=== PATIENT | female | born 1950 | race Two or more races ===

== ENCOUNTER 2022-01-16 10:33 | Emergency (ER) | payer OTHER ==
[~2022-01-16] VITALS: Ht 172.7 cm; Wt 68.5 kg
[2022-01-16 10:45] VITALS: BP_SYST 141
--- NOTE | 2022-01-16 10:55 | NUR ---
PT BROUGHT TO ROOM, PRESENTED TO ED FROM HOME. PT AMBULATORY, STATES ONSET OF SINUS INFECTION LIKE S/S 2 WEEKS AGO, HAVE NOT GOTTEN BETTER, HAS INTERMITTENT MAHAJAN AND FACIAL PRESSURE WITH DRAINAGE, STATES HAS BEEN TAKING OTC MEDS THAT ARE NOT HELPING. DENIES CURRENT SOB, DENIES CP OR FOCAL NEURO CHANGES
--- NOTE | 2022-01-16 11:00 | NUR ---
ER at bedside examining patient.
--- NOTE | 2022-01-16 11:20 | NUR ---
LAB AT BEDSIDE TO DRAW BLOOD
[2022-01-16 11:33] LABS: BASOPHILS % (AUTO) 0.5 % (0.0-2.0); EOSINOPHILS # (AUTO) 0.2 K/uL (0.0-0.4); HEMATOCRIT 38.5 % (36-48); LYMPHOCYTES # (AUTO) 1.1 K/uL (1.0-5.5); LYMPHOCYTES % (AUTO) 12.4 % (20.5-51.5); MEAN CORPUSCULAR VOLUME 93 fL (79.0-98.0); MONOCYTES # (AUTO) 0.2 K/uL (0.0-1.0); MONOCYTES % (AUTO) 2.4 % (1.7-9.3); NEUTROPHILS # (AUTO) 7.5 K/uL (1.8-7.7); NEUTROPHILS % (AUTO) 82.7 % (40.0-70.0); PLATELET COUNT (AUTO) 280 K/uL (130-430); RED BLOOD CELL COUNT(AUTO) 4.15 MIL/uL (4.2-6.2); RED CELL DISTRIBUTION WIDTH 12.6 % (9.0-15.0); WHITE BLOOD COUNT (AUTO) 9.1 K/uL (4.8-10.8)
--- NOTE | 2022-01-16 11:41 | NUR ---
COLD PACK GIVEN FOR PATIENT C/O FACIAL PAIN
[2022-01-16 11:53] LABS: ANION GAP 9 (5-15); CALCIUM 8.8 mg/dL (8.4-11.0); CHLORIDE 105 mmol/L (98-107); CREATININE 0.95 mg/dL (0.55-1.30); GLUCOSE 123 mg/dL (70-99); POTASSIUM 4.1 mmol/L (3.5-5.1); UREA NITROGEN, BLOOD 20 mg/dL (8-21)
[2022-01-16 12:02] LABS: ALANINE AMINOTRANSFERASE 44 U/L (12-78); ALBUMIN 3.5 g/dL (3.4-4.8); ASPARTATE AMINOTRANSFERASE 20 U/L (10-37); TOTAL BILIRUBIN 0.3 mg/dL (0.0-1.0)
[2022-01-16] MEDS ORDERED: PSEUDOEPHEDRINE HCL 30 MG TABLET PO ONE (12:15)
[2022-01-16] MEDS ORDERED: KETOROLAC TROMETHAMINE 60 MG/2 ML VIAL IM ONE (12:15)
[2022-01-16 12:17] LABS: BILIRUBIN,URINE NEGATIVE (NEGATIVE); CLARITY/URINE CLEAR (CLEAR); COLOR,URINE YELLOW (YELLOW); GLUCOSE,URINE NEGATIVE (NEGATIVE); KETONES,URINE NEGATIVE (NEGATIVE); LEUKOCYTE ESTERASE ,URINE TRACE (NEGATIVE); NITRITE, URINE NEGATIVE (NEGATIVE); PROTEIN URINE NEGATIVE (NEGATIVE); UROBILINOGEN,URINE 0.2 (0.2-1.0)
[2022-01-16 12:18] LABS: BLOOD, URINE TRACE (NEGATIVE)
[2022-01-16 12:35] LABS: BACTERIA,URINE FEW /HPF (None Seen)
[2022-01-16 12:41] LABS: ACETONE, SERUM NEGATIVE (NEGATIVE)
--- NOTE | 2022-01-16 14:16 | NUR ---
WAITING FOR CT RESULTS, DR HEREDIA AND PEARL MCALLISTER AWARE.
[2022-01-16 14:25] VITALS: BP_SYST 138
[2022-01-16] MEDS ORDERED: HYDR-3917 PO (14:31)
--- NOTE | 2022-01-16 15:15 | NUR ---
Patient given written and verbal discharge instructions and verbalizes understanding. ER MD discussed with patient the results and treatment provided. Patient in stable condition. ID arm band removed. Rx of given. Patient educated on pain management and to follow up with PMD. Pain Scale 7/10. Opportunity for questions provided and answered. Medication side effect fact sheet provided.
== END 2022-01-16 15:15 | disposition home or self-care (01) ==
LOC: SED 10:33
DX: R51.9 Headache, unspecified (principal)
CPT/HCPCS: 99285; 70450; 71045; 80053; 81000; 82009; 82550; 85025; 87086; 84484; 36415; 93005; 76376; 96372; 83605; J1885

== ENCOUNTER 2023-10-01 14:40 | Emergency (ER) | payer OTHER ==
[~2023-10-01] VITALS: Ht 172.7 cm; Wt 74.8 kg
[~2023-10-01 14:40] MED LIST: HYDR-3917 PO
[2023-10-01 15:13] VITALS: BP_SYST 143; PULSE 92; RESP 16; TEMP 97.7; O2SAT 97
[2023-10-01 15:49] LABS: COVID19 ANTIGEN SOFIA FIA NEGATIVE (NEGATIVE)
[2023-10-01 15:52] LABS: INFLUENZA TYPE A Negative (NEGATIVE); INFLUENZA TYPE B NEGATIVE (NEGATIVE)
[2023-10-01 16:15] LABS: BASOPHILS % (AUTO) 0.6 % (0.0-2.0); EOSINOPHILS # (AUTO) 0.3 K/uL (0.0-0.4); EOSINOPHILS % (AUTO) 4.3 % (0.0-4.0); HEMATOCRIT 36.9 % (36-48); HEMOGLOBIN 12.8 g/dL (12.0-16.0); LYMPHOCYTES # (AUTO) 1.8 K/uL (1.0-5.5); LYMPHOCYTES % (AUTO) 26.3 % (20.5-51.5); MEAN CORPUSCULAR HEMOGLOBIN 31 pg (27-31); MEAN CORPUSCULAR HGB CONC 35 % (32-36); MEAN CORPUSCULAR VOLUME 90 fL (79.0-98.0); MONOCYTES # (AUTO) 0.6 K/uL (0.0-1.0); MONOCYTES % (AUTO) 8.2 % (1.7-9.3); NEUTROPHILS # (AUTO) 4.1 K/uL (1.8-7.7); NEUTROPHILS % (AUTO) 60.6 % (40.0-70.0); PLATELET COUNT (AUTO) 294 K/uL (130-430); RED BLOOD CELL COUNT(AUTO) 4.09 MIL/uL (4.2-6.2); RED CELL DISTRIBUTION WIDTH 13.9 % (9.0-15.0); WHITE BLOOD COUNT (AUTO) 6.7 K/uL (4.8-10.8)
[2023-10-01] MEDS: NACL 0.9% 1,000 ML IV ONE (16:19)
[2023-10-01 16:35] LABS: ALANINE AMINOTRANSFERASE 50 U/L (12-78); ALBUMIN 3.6 g/dL (3.4-4.8); ANION GAP 10 (5-15); ASPARTATE AMINOTRANSFERASE 30 U/L (10-37); CALCIUM 8.9 mg/dL (8.4-11.0); CARBON DIOXIDE 25 mmol/L (23-29); CHLORIDE 103 mmol/L (98-107); CREATININE 0.69 mg/dL (0.55-1.30); GLUCOSE 98 mg/dL (74-106); SODIUM SERUM 138 mmol/L (136-145); TOTAL BILIRUBIN 0.6 mg/dL (0.0-1.0); TOTAL PROTEIN, SERUM 6.6 g/dL (6.4-8.3); UREA NITROGEN, BLOOD 10 mg/dL (8-21)
[2023-10-01 17:01] LABS: BILIRUBIN,URINE NEGATIVE (NEGATIVE); COLOR,URINE YELLOW (YELLOW); GLUCOSE,URINE NEGATIVE (NEGATIVE); KETONES,URINE NEGATIVE (NEGATIVE); LEUKOCYTE ESTERASE ,URINE 3+ (NEGATIVE); NITRITE, URINE NEGATIVE (NEGATIVE); PROTEIN URINE NEGATIVE (NEGATIVE); UROBILINOGEN,URINE 0.2 (0.2-1.0)
[2023-10-01 17:09] LABS: BLOOD, URINE TRACE (NEGATIVE); CLARITY/URINE HAZY (CLEAR)
[2023-10-01 17:10] LABS: BACTERIA,URINE FEW /HPF (None Seen); MUCUS,URINE None Seen /LPF (None Seen); RBC,URINE NONE SEEN /HPF (0-3); WBC,URINE 50-80 /HPF (0-3)
[2023-10-01] MEDS ORDERED: cefTRIAXone 1 GM IVPB PREMIX 50 ML IV ONE (17:40)
[2023-10-01] MEDS: cefTRIAXone 1 GM in D5W 50 ML IV ONE (17:43)
[2023-10-01] MEDS ORDERED: CIPR250T4 PO (17:54)
[2023-10-01 18:41] VITALS: BP_SYST 145; PULSE 82; RESP 18; TEMP 97.5; O2SAT 97
== END 2023-10-01 18:40 | disposition home or self-care (01) ==
LOC: SED 14:40
DX: N39.0 Urinary tract infection, site not specified (principal); E86.0 Dehydration; R19.7 Diarrhea, unspecified; Z20.822 Contact with and (suspected) exposure to COVID-19; E78.5 Hyperlipidemia, unspecified; Z79.899 Other long term (current) drug therapy
CPT/HCPCS: 99284; 96365; 71045; 96361; 87426; 80053; 81001; 85025; 87040; 87086; 87186; 36415; 83605; 87804 ×2; J0696; J7030; 81000; 81015